=== PATIENT | male | born 1940 | race Caucasian/White ===

== ENCOUNTER 2017-01-25 12:12 | Emergency (ER) | payer OTHER ==
[~2017-01-25] VITALS: Ht 172.7 cm; Wt 73.0 kg
--- NOTE | 2017-01-25 12:35 | ED CARDIAC/CP/PALPITATIONS ---
History of Present Illness General Chief Complaint: Chest Pain Stated Complaint: CHEST TIGHTNESS Source: patient, family, old records Exam Limitations: no limitations Vital Signs & Intake/Output Vital Signs & Intake/Output Vital Signs Date Time Temp Pulse Resp B/P Pulse O2 O2 Flow FiO2 Ox Delivery Rate 01/25 1639 97.9 66 16 132/68 96 Room Air 01/25 1427 97.1 66 16 142/68 95 Room Air 01/25 1228 97 01/25 1226 66 20 168/82 97 Room Air 01/25 1220 97.5 63 16 180/95 95 Room Air Allergies Coded Allergies: NO KNOWN ALLERGIES (11/10/13) Reconcile Medications Aspirin (Aspirin*) 81 MG TAB.CHEW 1 TAB PO DAILY PROPHYLAXIS (Reported) Atorvastatin Calcium (Lipitor) 80 MG TABLET 1 TAB PO 2XW HPL (Reported) Folic Acid 1 MG TABLET 1 TAB PO DAILY SUPPLEMENT (Reported) Triage Note: PT TO ED C/O CHEST TIGHTNESS X4 HOURS. PT STATES HE'S HAS CHEST TIGHTNESS FOR 5 YEARS BUT TODAY WAS WORSE. NONREPRODUCIBLE TO PALPATION. WORSE WITH DEEP INSPIRATION. DENIES PMHX BUT STATES HE TAKES LIPITOR TWICE/WEEK AND 81MG ASA DAILY Triage Nurses Notes Reviewed? yes Onset: Abrupt Duration: hour(s): (4), better Timing: single episode today Quality/Severity: moderate, tightness Location: substernal Radiation: no radiation Activities at Onset: none Prior Chest Pain/Card Workup: cardiac cath Nitro Today/Relief: no nitro taken today Aspirin Today: 81 mg x 2 Associated Symptoms: denies HPI: Is a 76-year-old male who presents to emergency room with a history of high cholesterol after experiencing an episode lasting approximate 4 hours of substernal nonradiating chest tightness. He states his symptoms came on after taking a shower, and denies any associated dizziness lightheadedness or palpitations. Patient states that he has had similar episodes over the past 5 years however has not sought care for the symptoms until today stating that it was the worse it was. He denies any heavy lifting trauma or fall. The symptoms were not worse with exertion or taking a deep breath. He denies cough hemoptysis. No recent leg swelling or immobility. He denies any abdominal pain nausea vomiting. The pain is nonradiating no jaw or arm or back pain. He states in the past he "stretches his chest out" and that helped resolve his symptoms. He took 2 baby aspirin today. There are no modifying factors or associated symptoms otherwise. The patient states that he was seen in a partially 10 years ago by hardware test engineer Dr. elizalde at which time he had a catheterization performed however did not require angioplasty or stenting. He quit smoking several years ago denies alcohol use (STEPHANIE ORTIZ) Past History Travel History Traveled to [place] past 21 day No Medical History Any Pertinent Medical History? see below for history Neurological: NONE EENT: NONE Cardiovascular: hyperlipidemia Respiratory: NONE Gastrointestinal: NONE Hepatic: NONE Renal: NONE Musculoskeletal: NONE Psychiatric: NONE Endocrine: NONE Blood Disorders: NONE Cancer(s): NONE History of MRSA: No History of VRE: No History of CDIFF: No Pneumonia Vaccine: 12/06/13 Influenza Vaccine: 08/30/13 Surgical History Surgical History: non-contributory Psychosocial History Who do you live with Spouse Services at Home None What is your primary language Tristanian Tobacco Use: Quit >30 days ago ETOH Use: denies use Illicit Drug Use: denies illicit drug use Family History Family History, If Any: Relation not specified for: FHx: hyperlipidemia Hx Contributory? No (STEPHANIE ORTIZ) Review of Systems Review of Systems Constitutional: Reports: see HPI. All Other Systems: Reviewed and Negative Comments Review of systems: See HPI, All other systems negative. Constitutional, no chills no fever, no malaise no weight loss HEENT: no sore throat no congestion, no ear pain Cardiovascular: chest pain , no palpitation , no orthopnea no ankle swelling Skin, no jaundice no rashes, no change in skin Respiratory: No dyspnea no cough no sputum no hemoptysis GI: No nausea no vomiting, no diarrhea : No dysuria Muscle skeletal: No joint pain, no joint swelling, no back pain, no neck pain, Neurologic: No numbness no headache Psych: No stress Heme/endocrine: No bruising no bleeding Immunology: No lymphadenopathy (STEPHANIE ORTIZ) Physical Exam Physical Exam General Appearance: well developed/nourished, no apparent distress, alert, awake , comfortable Cardiovascular: regular rate/rhythm Comments: Well-developed well-nourished person in no acute distress HEENT: Normal EENT exam; PERRL, EOMI, HEAD is atraumatic. moist mucous membranes. Neck: Supple, no lymphadenopathy, normal range of motion no carotid bruit Back: Nontender, no CVA tenderness. Full range of motion Cardiovascular: Regular rate and rhythms no murmurs rubs or gallops, normal JVP Respiratory: Chest nontender.There were no bony deformities, no asymmetry. No respiratory distress. Patient speaking in full complete sentences. Breath sounds clear to auscultation bilaterally: NO W/R/R Abdomen: Soft, nontender nondistended, no appreciable organomegaly. Normal bowel sounds. No rebound/guarding, No ascites. Extremity: No edema, full range of motion of extremities, normal and equal pulses bilaterally, Neuro: Alert oriented x3, motor sensory normal, There were no obvious focal neurologic abnormalities. Skin: No appreciable rash on exposed skin, skin is warm and dry. Psych: Mood and affect is normal, memory and judgment is normal. Core Measures ACS in differential dx? Yes Severe Sepsis Present: No Septic Shock Present: No (JAYLENE COOK,STEPHANIE) Progress Differential Diagnosis: AMI, aortic dissection, atrial fibrillation, cholecystitis, CHF/pulm edema, costochondritis, hyperventilation, musculoskeletal pain, myocarditis, pancreatitis, pericarditis, pneumonia, pneumothorax, PSVT, pulmonary embolism, PVCs/PACs, unstable angina, V-fib/V-Tach Plan of Care: Orders Procedure Date/time Status Heart Healthy Diet 01/25 D Active TROPONIN LEVEL 01/25 1645 Complete EKG 01/25 1645 Active Telemetry/Critical Care Nurse Specialist 01/25 1234 Active TROPONIN LEVEL 01/25 1234 Complete PROTHROMBIN TIME 01/25 1234 Complete COMPREHENSIVE METABOLIC PANEL 01/25 1234 Complete CBC WITHOUT DIFFERENTIAL 01/25 1234 Complete EKG 01/25 1214 Active Laboratory Tests 01/25/17 1603: Troponin I < 0.01 01/25/17 1238: Anion Gap 10, Estimated GFR > 60, BUN/Creatinine Ratio 20.0, Glucose 103 H, Calcium 9.7, Total Bilirubin 1.0, AST 20, ALT 29, Alkaline Phosphatase 109, Troponin I < 0.01, Total Protein 7.5, Albumin 4.0, Globulin 3.5, Albumin/ Globulin Ratio 1.1, PT 11.9, INR 1.13, CBC w Diff NO MAN DIFF REQ, RBC 5.78, MCV 83.2, MCH 27.5, RDW 14.0, MPV 7.5, Gran % 70.8, Lymphocytes % 21.0, Monocytes % 7.1, Eosinophils % 1.0, Basophils % 0.1, Absolute Granulocytes 6.2, Absolute Lymphocytes 1.8, Absolute Monocytes 0.6, Absolute Eosinophils 0.1, Absolute Basophils 0, PUBS MCHC 33.0 Labs ordered old records reviewed patient denies any symptoms at this time case discussed Dr. Palacios. 01/25/2017 1:56:22 PM patient remains in no acute distress denies pain. I discussed with him and his at length all of his lab results, need for repeat troponin and EKG was in agreement with Discussed with the patient his repeat troponin and EKG, I advised follow-up with his primary care physicianas well as his hardware test engineer this week, advised to return anytime sooner with any concerns I answered all their questions they feel comfortable with this plan (JAYLENE COOK,STEPHANIE) Diagnostic Imaging: Viewed by Me: Radiology Read. Discussed w/RAD: Radiology Read. Radiology Impression: PATIENT: RYAN CUEVAS PRESENT AGE: 76 PATIENT ACCOUNT NO: [id number] : 40 LOCATION: [facility] ([place]) ORDERING PHYSICIAN: STEPHANIE COOK SERVICE DATE: 01/25/17 EXAM TYPE: RAD - XRY-CHEST XRAY, PA AND LATERAL EXAMINATION: XR CHEST CLINICAL INFORMATION: Chest pain. COMPARISON: None TECHNIQUE: 2 views of the chest were obtained. FINDINGS: Both lungs are fairly well-expanded and clear. The heart size and pulmonary vascularity is normal. No gross bony abnormality seen. IMPRESSION: Unremarkable chest exam. DICTATED BY: MAGDY KAHN MD DATE/TIME DICTATED:1342 DIRECTOR DATA:RHODA DATE/TIME TRANSCRIBED:01/25/171342 CONFIDENTIAL, DO NOT COPY WITHOUT APPROPRIATE AUTHORIZATION. <Electronically signed in Other Vendor System> SIGNED BY: MAGDY KAHN MD 01/25/17 0708 Initial ED EKG: normal sinus at 60, no acute ST segment changes prophylaxis Prior EKG: unchanged (10/2013) Repeat EKG: unchanged Rhythm Strip: normal sinus rhythm (STEPHANIE ORTIZ) Departure Departure Time of Disposition: 1720 Disposition: HOME OR SELF CARE Condition: Stable Clinical Impression Primary Impression: Atypical chest pain Referrals: CHELSEA BRADLEY,HARDIK Vance (PCP/Family) Additional Instructions: follow up with your pmd dr mendoza as well as your hardware test engineer dr duarte this week. return at anytime sooner with any concerns Departure Forms: Customer Survey General Discharge Information (STEPHANIE ORTIZ) PA/CUSTOM HARVESTER Co-Sign Statement Statement: ED Attending supervision documentation- [X] I saw and evaluated the patient. I have also reviewed all the pertinent lab results and diagnostic results. I agree with the findings and the plan of care as documented in the PA's/CUSTOM HARVESTER's documentation. [X] I have reviewed the ED Record and agree with the PA's/CUSTOM HARVESTER's documentation. [] Additions or exceptions (if any) to the PAs/CUSTOM HARVESTER's note and plan are summarized below: [] (FADI BRADLEY,KAMRON Sawyer) Critical Care Note Critical Care Note Critical Care Time: non-applicable (STEPHANIE ORTIZ)
[2017-01-25] MEDS ORDERED: LIPITOR80 M1 PO (12:47)
[2017-01-25] MEDS ORDERED: ASPIRIN81 M4 PO (12:48)
[2017-01-25] MEDS ORDERED: FOLIC ACID1 M1 PO (12:49)
[2017-01-25 12:58] LABS: ABSOLUTE BASOPHIL COUNT 0 /CUMM (0.0-0.2); ABSOLUTE EOSINOPHIL COUNT 0.1 /CUMM (0.0-0.7); ABSOLUTE GRANULOCYTE CT 6.2 /CUMM (1.4-6.5); ABSOLUTE LYMPH COUNT 1.8 /CUMM (1.2-3.4); ABSOLUTE MONOCYTE COUNT 0.6 /CUMM (0.10-0.60); BASOPHIL % 0.1 % (0.0-2.0); GRANULOCYTE % 70.8 % (42.2-75.2); HEMATOCRIT 48.1 % (42-52); MEAN CORPUSCULAR HGB 27.5 PG (27.0-31.0); MEAN CORPUSCULAR VOLUME 83.2 FL (80.0-94.0); MEAN PLATELET VOLUME 7.5 FL (7.4-10.4); PLATELET COUNT 327 /CUMM (130-400); RED BLOOD CELL CT 5.78 /CUMM (4.70-6.10); WHITE BLOOD CELL COUNT 8.7 /CUMM (4.8-10.8)
[2017-01-25 13:08] LABS: PT 11.9 SEC (9.4-12.5)
--- NOTE | 2017-01-25 13:47 | RADIOLOGY REPORT ---
EXAMINATION: XR CHEST CLINICAL INFORMATION: Chest pain. COMPARISON: None TECHNIQUE: 2 views of the chest were obtained. FINDINGS: Both lungs are fairly well-expanded and clear. The heart size and pulmonary vascularity is normal. No gross bony abnormality seen. IMPRESSION: Unremarkable chest exam.
[2017-01-25 16:39] VITALS: BP 132/68
== END 2017-01-25 17:35 ==
LOC: ERH 12:12
PROVIDERS: Physician Assistant Medical
DX: R07.89 Other chest pain (principal)
CPT/HCPCS: 93005; 93010